=== PATIENT | female | born 1980 | race Caucasian/White ===

== ENCOUNTER 2024-10-29 12:26 | Emergency (ER) | payer MEDICARE, SELFPAY ==
[2024-10-29] VITALS (15 sets, daily range): BP systolic 134–189; BP diastolic 86–145; PULSE 76–108; TEMP 36.3; O2SAT 96–98; BMI 47.4
--- OUTSIDE RECORDS SUMMARY | 2024-10-29 12:34 | XMS_ITS | Clinical Summary ---
[facility] Organization [facility] Address [address] [place] [address] Care Team Providers Care Heating Equipment Repairer Name Role Phone Valerie Hernandez RN Primary Care Provider Unavaila ble Allergies No known active allergies Medications furOSEmide 20 MG TabIndications:Lo ng term (current) use of systemic steroids,Rheumato id arthritis involving multiple sites with positive rheumatoid factor,Dorsalgia, Disorder of bone and cartilage,Bilater al olecranon bursitis,Chronic pain of both shoulders,Tendoni tis of both rotator cuffs,Bilateral biceps tendonitis,Subacr omial bursitis,Rheumato id nodules,Fatigue, unspecified type,Encounter for long-term (current) use of non-steroidal anti-inflammatori es,Long-term current use of high risk medication other than anticoagulant 1 po q AM PRN 30 tablet 11 10/31/19 17 Active folic acid 1 MG TabIndications:An emia, unspecified type,Elevated alkaline phosphatase level,Vitamin D deficiency 4 po q day 120 tablet 11 12/19/19 17 Active pyridoxine ([employer]S VITAMIN B-6) 50 MG TabIndications:Vi tamin B6 deficiency 1 po q day 30 tablet 11 12/20/19 17 Active ciprofloxacin 500 MG Tab tablet 500 mg 2 times daily. 0 12/21/19 18 Active methotrexate 2.5 MG TabIndications:Rh eumatoid arthritis involving multiple sites with positive rheumatoid factor,Bilateral olecranon bursitis,Lumbar degenerative disc disease,Rheumatoi d nodules,manager terminal (current) use of systemic steroids,Encounte r for long-term (current) use of non-steroidal anti-inflammatori es,Long-term current use of high risk medication other than anticoagulant,Rhe umatoid factor positive,Anti-cyc lic citrullinated peptide antibody positive,Hepatiti s A antibody positive,Methotre xate, fdc, current use,Localized edema,Noncomplian ce,Patient non adherence,Vitamin D deficiency,Vitami n B6 deficiency 3 po one day a week 15 tablet 5 12/25/19 18 Active Additional Information Patient not taking.Reported on 03/24/2021 predniSONE 5 MG Tab tabletIndications :Rheumatoid arthritis involving multiple sites with positive rheumatoid factor,Bilateral olecranon bursitis,Lumbar degenerative disc disease,Rheumatoi d nodules,manager terminal (current) use of systemic steroids,Encounte r for long-term (current) use of non-steroidal anti-inflammatori es,Long-term current use of high risk medication other than anticoagulant,Rhe umatoid factor positive,Anti-cyc lic citrullinated peptide antibody positive,Hepatiti s A antibody positive,Methotre xate, fdc, current use,Localized edema,Noncomplian ce,Patient non adherence,Vitamin D deficiency,Vitami n B6 deficiency 4 po q AM for 2 wks then 3 po q AM for 2 wks then 2 po q AM for 2 wks then 1 po q AM thereafter 120 tablet 5 12/25/19 18 Active sulindac 200 MG TabIndications:Rh eumatoid arthritis involving multiple sites with positive rheumatoid factor,Bilateral olecranon bursitis,Lumbar degenerative disc disease,Rheumatoi d nodules,manager terminal (current) use of systemic steroids,Encounte r for long-term (current) use of non-steroidal anti-inflammatori es,Long-term current use of high risk medication other than anticoagulant,Rhe umatoid factor positive,Anti-cyc lic citrullinated peptide antibody positive,Hepatiti s A antibody positive,Methotre xate, fdc, current use,Localized edema,Noncomplian ce,Patient non adherence,Vitamin D deficiency,Vitami n B6 deficiency 1 po bid PRN 60 tablet 11 12/25/19 18 Active Etanercept (ENBREL MINI) 50 MG/ML Solution CartridgeIndicati ons:Rheumatoid arthritis involving multiple sites with positive rheumatoid factor,Bilateral olecranon bursitis,Lumbar degenerative disc disease,Rheumatoi d nodules,manager terminal (current) use of systemic steroids,Encounte r for long-term (current) use of non-steroidal anti-inflammatori es,Long-term current use of high risk medication other than anticoagulant,Rhe umatoid factor positive,Anti-cyc lic citrullinated peptide antibody positive,Hepatiti s A antibody positive,Methotre xate, ferry terminal supervisor, current use,Localized edema,Noncomplian ce,Patient non adherence,Vitamin D deficiency,Vitami n B6 deficiency One shot one day a week 4 Cartridge 11 12/25/19 18 Active Additional Information Patient not taking.Reported on 03/24/2021 potassium chloride 10 MEQ Cap CRIndications:Vit ware D deficiency,Hypoka lemia,Anemia, unspecified type 2 po q day 60 capsule 11 12/25/19 18 Active Cholecalciferol (MAXIMUM D3) 77870 units CapIndications:Vi tamin D deficiency,Hypoka lemia,Anemia, unspecified type 2 po one day a week 10 capsule 11 12/25/19 18 Active Dulaglutide (Trulicity) 1.5 MG/0.5ML Solution Pen-injector injection INJECT 1.5 MG SUBCUTANEOUSLY WEEKLY 11/27/19 21 Active hydroCHLOROthiazi de 12.5 MG tablet 03/21/19 22 Active Levemir FlexTouch 100 UNIT/ML Solution Pen-injector injection 01/25/20 21 Active Insulin Lispro, 1 Unit Dial, 100 UNIT/ML Solution Pen-injector Inject 2-8 Units under the skin Every night. 10/10/19 21 Active sertraline 25 MG tablet 03/21/19 22 Active potassium chloride 20 MEQ Tab CR tablet Take 20 mEq by mouth daily. Active omeprazole [address] capsule Take 1 capsule by mouth 2 times daily. 60 capsule 3 03/24/19 22 Active Active Problems Problem Noted Date Diagnosed Date Gastroesophageal reflux disease 03/24/2021 Overview (03/24/2021): Added automatically from request for surgery [id number] Type 2 diabetes mellitus wit hout complication, with long-term current use of insulin 03/24/2021 Overview (03/24/2021): Added automatically from request for surgery [id number] Hypersomnolence 03/24/2021 Overview (03/24/2021): Added automatically from request for surgery [id number] Noncompliance 12/24/2017 Patient non adherence 12/24/2017 Obesity: body mass index of 50 or higher 018 Effusion of left knee 05/19/2017 Localized edema 05/19/2017 Pain in left knee 05/19/2017 Polyp of sigmoid colon 02/21/2017 Iron deficiency anemia 01/29/2017 Vitamin D deficiency 01/01/2017 Vitamin B6 deficiency 01/01/2017 Hyperglycemia 01/01/2017 Hyponatremia 01/01/2017 Alkaline phosphatase elevation 01/01/2017 Rheumatoid factor positive 01/01/2017 Anti-cyclic citrullinated peptide antibody posit bethany 01/01/2017 ESR raised 01/01/2017 Hepatitis A antibody positive 01/01/2017 Anemia 01/01/2017 Lumbar degenerative disc disease 01/01/2017 Methotrexate, fdc, current use 01/01/2017 Fatigue 10/30/2016 Disorder of bone and cartilage 10/30/2016 manager terminal (current) use of systemic steroids Encounter for long-term (cur rent) use of non-steroidal anti-inflammatories 10/30/2016 Rheumatoid arthritis involvi ng multiple sites with positive rheumatoid factor 10/30/2016 Rheumatoid nodules 10/30/2016 Bilateral olecranon bursitis 10/30/2016 Long-term current use of hig h risk medication other than anticoagulant 10/30/2016 Dorsalgia 10/30/2016 Bilateral shoulder pain 10/30/2016 Tendonitis of both rotator cuffs 10/30/2016 Bilateral biceps tendonitis 10/30/2016 Subacromial bursitis 10/30/2016 Immunizations Immunization Administration Dates Next Due [id number] COVID-19 monovalen t vaccine, mRNA, Pfizer, 0.3 ML 02/18/2021,07/08/2020,06/17/2020 Influenza Vaccine 0.5ml 02/18/2021,01/14/2016 Influenza Vaccine, Quadrivalent MDCK PF 01/30/20 18 Influenza Vaccine, Trivalent 01/17/2015 Influenza, injectable, quadr ivalent, preservative free 02/18/2021 influenza, injectable, quadrivalent 01/10/2017 Family History Medical History Relation Name Comments Diabetes Father Hypertension Father Lung Cancer Father Hypertension Mother Cancer- Other Paternal Grandmother Diabetes Paternal Grandmother Relation Name Status Comments Father Mother Paternal Grandmother Social History Tobacco Use Types Packs/Day Years Used Date Smoking Tobacco: Former Cigarettes Smokeless Tobacco: Never Comments No Sex and Gender Information Value Date Recorded Sex Assigned at Not on file Legal Sex Female 5:52 PM EST Gender Identity Female 09/20/2016 4:08 PM EDT Sexual Orientation Not on file Last Filed Vital Signs Vital Sign Reading Time Taken Comments Blood Pressure 157/111 03/24/2021 8:55 AM EST Pulse 104 03/24/2021 8:55 AM EST Temperature 35.9 C (96.7 F) 03/24/2021 8:55 AM EST Respiratory Rate 18 12/24/2017 10:0 4 AM EDT Oxygen Saturation 96% 03/24/2021 8:55 AM EST Inhaled Oxygen Concentration - - Weight 166.4 kg (366 lb 12.8 oz) 04/08/2021 2:14 PM EST Height 172.7 cm (5' 8 ) 03/24/2021 8:55 AM EST Body Mass Index 55.77 03/24/2021 8:55 AM EST Plan of Treatment Health Maintenance Due Date Last Done Comments TETANUS 1978 HIV SCREENING DISCUSSION 1993 HEP B VACCINE (1 of 3 - 19+ 3-dose series) 1997 PNEUMOCOCCAL VACCINE SERIES (1 of 2 - PCV) 1997 TDAP (ADULT) 1997 CERVICAL CANCER SCREENING DISCUSSION 05/31/1999 LIPID SCREENING 2018 MAMMOGRAM SCREENING DISCUSSION 2018 COLORECTAL CANCER SCREENING DISCUSSION 05/31/2023 COVID-19 VACCINE (2023-2 5 season) 2023 02/18/2021, 07/08/2020, 06/17/2020 INFLUENZA VACCINE (#1) 2024 , 02/18/2021, 01/29/2018, Additional history exists HEPATITIS C VIRUS SCREENING Completed 12/16/2016 POTASSIUM Discontinued 12/24/2017, 12/16/2016 Procedures Procedure Name Priority Date/Time Associated Diagnosis Comments COMPREHENSIVE METABOLIC PANEL Routine 12/24/2017 11:51 AM EDT Rheumatoid arthritis involving multiple sites with positive rheumatoid factor Bilateral olecranon bursitis Lumbar degenerative disc disease Rheumatoid nodules skilled nursing (current) use of systemic steroids Encounter for long-term (current) use of non-steroidal anti-inflammatories Long-term current use of high risk medication other than anticoagulant Rheumatoid factor positive Anti-cyclic citrullinated peptide antibody positive Hepatitis A antibody positive Methotrexate, fdc, current use Localized edema Noncompliance Patient non adherence Vitamin D deficiency Vitamin B6 deficiency HEPATITIS A, B, C Routine 12/16/2016 11: 18 AM EDT skilled nursing (current) use of systemic steroids Rheumatoid arthritis involving multiple sites with positive rheumatoid factor Dorsalgia Disorder of bone and cartilage Bilateral olecranon bursitis Chronic pain of both shoulders Tendonitis of both rotator cuffs Bilateral biceps tendonitis Subacromial bursitis Rheumatoid nodules Fatigue, unspecified type Encounter for long-term (current) use of non-steroidal anti-inflammatories Long-term current use of high risk medication other than anticoagulant from Last 3 Months or Most Recently Relevant to Health Maintenance Results * (ABNORMAL) COMPREHENSIVE METABOLIC PANEL (12/24/2017 11:51 AM EDT) Glucose 121(H) 70 - 100 MG/DL [address] Comment: NORMAL <100 mg/dL PREDIABETES 101-126 mg/dL DIABETES 126 mg/dL or higher BUN 16 7 - 20 MG/DL [address] CREATININE SERUM 0.8 0.52 - 1.04 MG/DL [address] SODIUM 139 136 - 145 MMOL/L [address] Potassium 3.2(L) 3.5 - 5.1 MMOL/L [address] CHLORIDE 107 98 - 107 MMOL/L [address] CALCIUM 9.1 8.4 - 10.2 MG/DL [address] PROTEIN, TOTAL 7.5 6.3 - 8.2 GM/DL [address] Albumin 3.6 3.5 - 5.0 G/dl [address] BILIRUBIN, TOTAL 0.7 0.2 - 1.2 MG/DL [address] AST 16 15 - 41 IU/L [address] ALKALINE PHOSPHATASE 107 38 - 126 IU/L [address] CARBON DIOXIDE (CO2) 23 22 - 30 MMOL/L [address] A/G Ratio 0.9(L) 1.3 - 2.[address] ALT 14 14 - 54 IU/L [address] ESTIMATED GFR, NON AMER >60 ml/min/1. 73sq.m [address] ESTIMATED GFR, >60 ml/min/1. 73sq[address]m [address] GFR COMMENT Average GFR for 30-39 years old = 109. [address] Comment: Chronic Kidney disease, GFR = <60. Kidney failure, GFR = <15. The GFR estimate is not adjusted for extreme body surface area or acute process, nor has it been validated for women or ethnic groups other than and . 12/24/2017 11:5 1 AM EDT 12/24/2017 11:52 AM EDT us Solis Paredes Jr., DO CHEMISTRY ORDERABLES Final Result [address] [place] [address] * (ABNORMAL) HEPATITIS A, B, C (12/16/2016 11:18 AM EDT) Hep A AB (IGG + IGM) Positive(A) Negative [facility] Hep B Surf AG Negative Negative [facility] HEP B CORE AB,TOTAL(IGG+IGM) Negative Negative [facility] Hep B Surf AB Non Reactive [facility] Comment: (NOTE) Non Reactive: Inconsistent with immunity, less than 10 mIU/mL Reactive: Consistent with immunity, greater than 9.9 mIU/mL HEP C AB 0.1 0.0 - 0.9 s/co ratio [facility] Comment: (NOTE) Negative: < 0.8 Indeterminate: 0.8 - 0.9 Positive: > 0.9 The CDC recommends that a positive HCV antibody result be followed up with a HCV Nucleic Acid Amplification test ([id number]). PERFORMED AT [facility] 12/16/2016 11:1 8 AM EDT 12/16/2016 11:20 AM EDT us Solis Paredes Jr., DO IMMUNOLOGY ORDERABLES Final Result [facility] [address] [place] [phone] from Last 3 Months or Most Recently Relevant to Health Maintenance Insurance Medicare A and B Medicaid Care Teams Heating Equipment Repairer Relationship Specialty Start Date End Date Valerie Hernandez, ABRAN PCP - General 02/14/21
--- OUTSIDE RECORDS SUMMARY | 2024-10-29 12:34 | XMS_ITS | Clinical Summary ---
Author Organization [facility] Address [address] [place] [address] Care Team Providers Care Employment Officer Name Role Phone Unavailable Primary Care Provider Unavailabl e Social History Tobacco Use Types Packs/Day Years Used Date Smoking Tobacco: Never Assessed Comments Unknown Sex and Gender Information Value Date Recorded Sex Assigned at Not on file Legal Sex Female 9:50 PM EDT Gender Identity Not on file Sexual Orientation Not on file Last Filed Vital Signs Vital Sign Reading Time Taken Comments Blood Pressure 134/83 02/17/2019 12:00 PM EST Pulse - - Temperature - - Respiratory Rate - - Oxygen Saturation - - Inhaled Oxygen Concentration - - Weight 167 kg (369 lb) 04/03/2019 12:00 PM EST Height 172.7 cm (5' 8 ) 04/03/2019 12:00 PM EST Body Mass Index 56.11 04/03/2019 12:00 PM EST Plan of Treatment Not on file Insurance MEDICARE
--- OUTSIDE RECORDS SUMMARY | 2024-10-29 12:34 | XMS_ITS | Clinical Summary ---
Author Organization [employer] Address [facility] [id number] [address] [place] [address] Care Team Providers Care Sample Cutter Name Role Phone Tamela Potter Catrachita MARKS-FISH HOUSEKEEPER Primary Care Provider + Allergies No known active allergies Medications furosemide (LASIX) 20 mg tablet Take 20 mg by mouth daily. Active predniSONE (DELTASONE) 10 mg tablet Take 10 mg by mouth daily. 1 Active pravastatin (PRAVACHOL) 20 mg tablet Take 20 mg by mouth daily. 1 Active sertraline (ZOLOFT) 25 mg tablet Take 25 mg by mouth daily. 1 Active SITagliptin (JANUVIA) 50 mg tablet Take 50 mg by mouth daily. 0 Active potassium chloride (KLOR-CON SPRINKLE) 10 MEQ CR capsule Take 1 capsule by mouth daily. 1 Active omeprazole (PriLOSEC OTC) 20 mg EC tablet Take 20 mg by mouth daily. Active losartan (COZAAR) 100 mg tablet Take 100 mg by mouth daily. 1 Active insulin NPH isoph U-100 human (HumuLIN N KWIKPEN) 100 unit/mL (3 mL) insulin pen Inject 15 Units under the skin daily. 15 mL 12 1 Active insulin lispro (HumaLOG) 100 unit/mL insulin pen Inject 2-10 Units under the skin 3 (three) times a day with meals. 15 mL 12 1 Active insulin lispro (HumaLOG) 100 unit/mL insulin pen Inject 2-8 Units under the skin nightly. 15 mL 12 1 Active TRULICITY 1.5 mg/0.5 mL pen injector INJECT 1.5 MG SUBCUTANEOUSLY WEEKLY 1 Active ferrous sulfate 325 (65 FE) mg tablet Take 1 tablet by mouth 2 (two) times a day. 1 Active cholecalcifero l, vitamin D3, 2,000 units capsule Take by mouth daily. 1 Active sulindac (CLINORIL) 150 mg tablet 1 Active Active Problems Problem Noted Date Diagnosed Date BMI 50.0-59.9, adult 11/05/2020 Necrotizing fasciitis 09/30/2020 Polyp of sigmoid colon 02/21/2017 Iron deficiency anemia 01/29/2017 Immunizations Immunization Administration Dates Next Due Influenza, Im Trivalent Preservative 01/17/2015 Influenza, Injectable, Mdck, Preservative Free, Quad 01/29/2018 Influenza, Injectable, Quadrivalent 01/10/2017 Influenza, Unspecified 01/14/2016 Tdap 11/06/2017 Family History Medical History Relation Name Comments Colon cancer Father Diabetes Father Hypertension Father Hypothyroidism Father Lung cancer Father Hypertension Mother Rheum arthritis Mother Relation Name Status Comments Father Mother Social History Tobacco Use Types Packs/Day Years Used Date Smoking Tobacco: Former Cigarettes 0.5 6 2 - 2016 Smokeless Tobacco: Never Alcohol Use Standard Drinks/Week Comments Yes 6 (1 standard drink = 0.6 oz pur e alcohol) Childcare Answer Date Recorded Childcare Unknown 08/29/2018 Employment Answer Date Recorded Employment Unknown 08/29/2018 Purpose - Life Answer Date Recorded Purpose and direction in life Unknown Comments No Sex and Gender Information Value Date Recorded Sex Assigned at Not on file Legal Sex Female 8:19 AM EST Gender Identity Not on file Sexual Orientation Not on file Last Filed Vital Signs Vital Sign Reading Time Taken Comments Blood Pressure 165/93 01/24/2021 2:01 PM EST Pulse 80 01/24/2021 2:01 PM EST Temperature 36.7 C (98 F) 10/09/2020 12:20 PM EDT Respiratory Rate 18 10/09/2020 12:20 PM EDT Oxygen Saturation 94% 10/09/2020 12:20 PM EDT Inhaled Oxygen Concentration - - Weight 153.8 kg (339 lb) 01/24/2021 2:01 PM EST Height 170.2 cm (5' 7 ) 01/24/2021 2:01 PM EST Body Mass Index 53.09 01/24/2021 2:01 PM EST Plan of Treatment Health Maintenance Due Date Last Done Comments Depression Screening 1990 Tobacco Screening 1990 Adult BMI Screening 1996 Pap Smear 05/31/1999 COVID-19 Vaccine (3 - 2023-2 5 season) 2023 07/08/2020, 06/17/2020 Influenza Vaccine 11/17/2024 01/29/2018, , 01/14/2016, Additional history exists DTaP,Tdap and Td Vaccines (2 - Td or Tdap) 11/07/2027 11/06/2017 Goals Goal Patient Goal Type Associated Problems Recent Progress Patient-Stated? Author home with [facility] General Yes Sari Soriano, RN Note: And family support Medical Devices Not on file Insurance MEDICARE MEDICAID [place] Advance Directives * Full Code (Latest Code Status on File) Date Activated Date Inactivated Comments 09/30/2020 4:44 PM 10/09/2020 4:35 PM Care Teams Sample Cutter Relationship Specialty Start Date End Date Tamela Potter APRN-FISH HOUSEKEEPER [address] [place], [place] [phone] PCP - General Family Medicine 09/30/20
--- OUTSIDE RECORDS SUMMARY | 2024-10-29 12:34 | XMS_ITS | Encounter Summary ---
Author Organization [employer] Address [facility] [id number] [address] [facility] [place] [address] Care Team Providers Care Dermatologist Name Role Phone Tamela Potter KENDRICK-[employer] LAYER Primary Care Provider + Encounter Details Date Type Department Care Team (Late st Contact Info) Description 10/13/2020 Telephone [facility] [address] [place] [phone] Diana Holder CMA Social History Tobacco Use Types Packs/Day Years Used Date Smoking Tobacco: Former Cigarettes 0.5 6 2 011 2016 Smokeless Tobacco: Never Alcohol Use Standard [...] on file Sexual Orientation Not on file COVID-19 Exposure Response Date Recorded In the last month, have you been in contact with someone who was confirmed or suspected to have Coronavirus / COVID-19? No / Unsure 09/30/2020 6:18 PM EDT documented as of this encounter Plan of Treatment Not on file documented as of this encounter Goals Goal Patient Goal Type Associated Problems Recent Progress Patient-Stated? Author home with [facility] General Yes Sari Soriano, RN Note: And family support documented as of this encounter Visit Diagnoses Diagnosis Necrotizing fasciitis ([facility])- Primary Necrotizing fasciitis documented in this encounter Care Teams Dermatologist Relationship Specialty Start Date End Date Tamela Potter APRN-HARDWOOD FLOOR LAYER [address] [place] [id number] PCP - General Family Medicine 09/30/20 documented as of this encounter
--- OUTSIDE RECORDS SUMMARY | 2024-10-29 12:34 | XMS_ITS | Clinical Summary ---
Author Organization [facility] Address [address] [place] [address] Care Team Providers Care Communication Equipment Mechanic Name Role Phone Unavailable Primary Care Provider Unavailabl e Social History Tobacco Use Types Packs/Day Years Used Date Smoking Tobacco: Never Assessed [place] Safety & Environment Answer Date Rec orded Fear of Current or Ex-Partner Not on file Emotionally Abused Not on file 05/10/2023 Physically Abused Not on file 05/10/2023 Sexually Abused Not on file 05/10/2023 Physically or Sexually Abused Not on file Comments Unknown Sex and Gender Information Value Date Recorded Sex Assigned at Not on file Legal Sex Female 12:38 AM EDT Gender Identity Not on file Sexual Orientation Not on file Plan of Treatment Not on file
--- OUTSIDE RECORDS SUMMARY | 2024-10-29 12:34 | XMS_ITS | Encounter Summary ---
Author Organization [employer] Address [facility] [id number] [address] [place] [address] Care Team Providers Care License Examiner Name Role Phone Tamela Potter Catrachita BERGER Primary Care Provider + Encounter Details Date Type Department Care Team (Late st Contact Info) Description 09/30/2020 Orders Only [facility] [place] [address] Transcribe, Orders Support User Pain (Primary Dx) Social History Tobacco Use Types Packs/Day Years Used Date Smoking Tobacco: Former Cigarettes 0.5 6 2 2016 Smokeless Tobacco: Never Alcohol Use Standard [...] PM EDT documented as of this encounter Functional Status documented as of this encounter Plan of Treatment Not on file documented as of this encounter Results * CT abdomen and pelvis with contrast (09/30/2020 11:35 AM EDT) us Scanning Provider External IMG CT ORDERABLES Fin al Result * X-ray chest 1 view (09/30/2020 10:30 AM EDT) us Scanning Provider External IMG DIAGNOSTIC IMAGIN G ORDERABLES Final Result documented in this encounter Visit Diagnoses Diagnosis Pain- Primary Generalized pain documented in this encounter Care Teams License Examiner Relationship Specialty Start Date End Date Tamela Potter APRN-TIPPLE WORKER [address] [place] [id number] PCP - General Family Medicine 09/30/20 documented as of this encounter
--- NOTE | 2024-10-29 12:42 | ECG_ITS ---
[facility] Test Date: 2024-10-29 Pat Name: MALINI MONTANA Department: Room: - Gender: Female Tele Marketing Executive: : 1980 Requested By: [id number] Order Number: [id number] Reading MD: RUPAL ROSADO M.D. Measurements Intervals [place] Rate: 93 P: 60 IN: 200 QRS: 26 QRSD: 84 T: 49 QT: 348 QTc: 399 Interpretive Statements 1100 Sinus rhythm 1570 with occasional ventricular premature complexes 2420 RSR (QR) in lead V1/V2, consistent with right ventricular conduction delay ANTEROSEPTAL INFARCT, ACUTE [address] depression 8102 Low QRS voltage in chest leads STEMI 9150 abnormal ECG No previous ECG available for comparison Electronically Signed On 10-30-2024 19:25:04 EDT by RUPAL ROSADO M.D.
--- NOTE | 2024-10-29 12:44 | ED_ITS ---
HPI HPI - General Adult General Chief complaint: Chest Pain Stated complaint: CHEST PAINS WEAKNESS L SHOULDER Time Seen by Provider: 10/29/24 12:36 Source: patient Mode of arrival: walk-in Limitations: no limitations History of Present Illness HPI narrative: 44-year-old female presents for chest pain. It is sharp and in the middle part of her chest and it started about 730 this morning, about 5 hours ago. No trauma or unusual activity and it does not seem to radiate but her left shoulder feels tired. No shortness of breath or fever or cough or back pain. She has no personal history of CAD. Related Data Allergies Allergy/AdvReac Type Severity Reaction Status Date / Time No Known Drug Allergies Allergy Verified 10/29/24 12:32 Review of Systems ROS Narrative A ten point review of systems is negative except as noted above. PFSH PFSH Social History Little interest or pleasure in doing things: not at all Feeling down, depressed, or hopeless: not at all Exam Narrative Exam Narrative: Nurses note and vital signs reviewed and patient is not hypoxic. General: The patient appears well and in no apparent distress. Patient is resting comfortably on cart. Skin: Warm, dry, no pallor noted. There is no rash noted. Head: Normocephalic, atraumatic Eye: Normal conjunctiva, no drainage Ears, Nose, Mouth, and Throat: oral mucosa is moist. Nares patent. Cardiovascular: Regular Rate and Rhythm Respiratory: Patient is in no distress, no accessory muscle use, lungs are clear to auscultation, no wheezing, rales or rhonchi Back: non-tender GI: Soft and nontender Musculoskeletal: The patient has no evidence of calf tenderness, no pitting edema, symmetrical pulses noted bilaterally Neurological: A&O, normal speech Psychiatric: Cooperative Constitutional Vital Signs, click to edit/add: Last Vital Signs Temp 97.4 F L 10/29/24 12:32 Pulse 100 H 10/29/24 13:09 Resp 18 10/29/24 13:09 BP 160/110 H 10/29/24 13:09 Pulse Ox 96 10/29/24 13:09 O2 Del Method Room Air 10/29/24 13:09 Course Vital Signs Vital signs: Vital Signs Temperature 97.4 F L 10/29/24 12:32 Pulse Rate 96 H 10/29/24 12:32 Respiratory Rate 20 10/29/24 12:32 Blood Pressure 165/110 H 10/29/24 12:32 Pulse Oximetry 97 10/29/24 12:32 Oxygen Delivery Method Room Air 10/29/24 12:32 Temperature 97.4 F L 10/29/24 12:32 Pulse Rate 100 H 10/29/24 13:09 Respiratory Rate 18 10/29/24 13:09 Blood Pressure 160/110 H 10/29/24 13:09 Pulse Oximetry 96 10/29/24 13:09 Oxygen Delivery Method Room Air 10/29/24 13:09 Medical Decision Making MDM Narrative Medical decision making narrative: STEMI is identified on her EKG. Troponin is elevated at 550. Case discussed with Dr. Sparks at [facility] and he has reviewed the EKG and we have agreed the patient will be transported there expeditiously for emergent heart catheterization. The patient was given IV heparin and oral Brilinta as well as aspirin and nitroglycerin. She is hemodynamically stable and agreeable for transfer. She was given IV metoprolol for elevated blood pressure. Transport will be by helicopter to transfer her there in the most expedient fashion. Differential Diagnosis Differential Diagnosis: STEMI, NSTEMI, nonspecific chest pain, anxiety, GERD Lab Data Lab results reviewed: Yes I reviewed the patient's lab results Labs: Lab Results 10/29/24 Range/Units 12:45 WBC 9.9 (4.0-11.0) 10^3/uL RBC 4.79 (4.20-5.40) 10^6/uL Hgb 11.4 L (12.0-16.0) g/dL Hct 36.7 (36.0-48.0) % MCV 76.6 L (81.0-99.0) fL MCH 23.8 L (26.7-34.0) pg MCHC 31.1 (29.9-35.2) g/dL RDW 15.1 H (11.0-15.0) % Plt Count 333 (150-450) 10^3/uL MPV 9.7 (9.5-13.5) fL Neut % (Auto) 69.9 (43.0-75.0) % Lymph % (Auto) 21.0 (20.5-60.0) % [place] % (Auto) 4.9 (1.7-12.0) % Eos % (Auto) 3.1 (0.9-7.0) % Baso % (Auto) 0.9 (0.2-2.0) % Neut # (Auto) 6.9 H (1.4-6.5) 10^3/uL Lymph # (Auto) 2.1 (1.2-3.8) 10^3/uL [place] # (Auto) 0.5 (0.3-0.8) 10^3/uL Eos # (Auto) 0.3 (0.0-0.7) 10^3/uL Baso # (Auto) 0.1 (0.0-0.1) 10^3/uL Abs Immat Gran (auto) 0.02 (0.00-0.03) 10^3/uL Imm/Tot Granulo (auto) 0.2 (0.0-0.5) % Sodium 134 L (136-145) mmol/L Potassium 3.7 (3.5-5.1) mmol/L Chloride 101 (98-107) mmol/L Carbon Dioxide 22.0 (21.0-32.0) mmol/L Anion Gap 14.7 BUN 14.0 (7.0-18.0) mg/dL Creatinine 0.95 (0.55-1.02) mg/dL Est GFR ( Amer) >60 (>=60 mL/min/1.73m^2) Est GFR (Non-Af Amer) >60 (>=60 mL/min/1.73m^2) BUN/Creatinine Ratio 14.7 Glucose 246 H (74-106) mg/dL Calcium 9.6 (8.5-10.1) mg/dL Troponin I High Sens 550.9 H* (4.0-51.3) pg/mL Imaging Data Chest x-ray: My impression: Chest x-ray my interpretation shows no acute findings ECG Data Attestation: I personally reviewed and interpreted this ECG as follows: (EKG on my interpretation shows sinus rhythm with rate of 93 and a PVC. There is ST depression in lead aVF as well as ST elevation in V1 and V2.) Critical Care Time Critical Care Time Critical Care Time: Yes Total Critical Care Time: 45 Attestation: Due to the high probability of sudden and clinically significant deterioration in the patient's condition he/she required the highest level of my preparedness to intervene urgently I provided critical care time including documentation time, medication orders and management, reevaluation, vital sign assessment, ordering and reviewing of lab tests, ordering and reviewing of x-ray studies, and admission orders. Aggregate critical care time is 45 minutes including only time during which I was engaged in work directly related to his/her care and did not include time spent treating other patients simultaneously. Discharge Plan Discharge Chief Complaint: Chest Pain Clinical Impression: ST elevation (STEMI) myocardial infarction Patient Disposition: [facility] Time of Disposition Decision: 13:08 Discharge Location: [facility] Condition: Fair Mode of Transportation: [employer]
[2024-10-29 12:55] LABS: Hematocrit 36.7 % (36.0-48.0); Hemoglobin 11.4 g/dL (12.0-16.0); Immature Granulocytes Abs Auto 0.02 10^3/uL (0.00-0.03); Immature Granulocytes Pct Auto 0.2 % (0.0-0.5); Lymphocytes Absolute Auto 2.1 10^3/uL (1.2-3.8); Mean Corpuscular HGB Conc 31.1 g/dL (29.9-35.2); Mean Corpuscular Hemoglobin 23.8 pg (26.7-34.0); Mean Corpuscular Volume 76.6 fL (81.0-99.0); Platelet Count 333 10^3/uL (150-450); Red Blood Count 4.79 10^6/uL (4.20-5.40); White Blood Count 9.9 10^3/uL (4.0-11.0)
--- NOTE | 2024-10-29 12:55 | XR_ITS ---
[facility] [place] [id number] Patient Name: MALINI MONTANA MRN: [id number] date: 1980 Sex: F Assigned Patient Location: ER Current Patient Location: ED.MAIN Accession/Order Number: [id number] Exam Date: 10/29/2024 13:30 Report Date: 10/29/2024 13:31 At the request of: SIMRAN VILLEGAS MD Procedure: XR chest 1V Single view chest: CLINICAL HISTORY: CP COMPARISON: Chest 09/30/2020 FINDINGS: The heart is normal in size. The lungs are clear. The pulmonary vasculature is normal. Mediastinum and hilar regions are unremarkable. No pleural effusions are seen. Visualized bones are intact. XR/XR chest 1V IMPRESSION: NEGATIVE CHEST. Impression dictated by: Anish Clancy Jr., D.O. 10/29/2024 1:31 PM Dictation Location: [place] [address] Electronically authenticated by: [id number] Y Date: 10/29/2024 13:31
[2024-10-29] MEDS: ASPIRIN 81 MG TAB.CHEW 324 MG PO (13:01)
[2024-10-29] MEDS: NITROGLYCERIN 0.4 MG BOTTLE SL ×2 (13:03→13:08)
[2024-10-29 13:11] LABS: Anion Gap 14.7; Blood Urea Nitrogen 14.0 mg/dL (7.0-18.0); Calcium 9.6 mg/dL (8.5-10.1); Carbon Dioxide 22.0 mmol/L (21.0-32.0); Chloride 101 mmol/L (98-107); Estimated GFR (African America >60 (>=60 mL/min/1.73m^2); Estimated GFR (Non-African Ame >60 (>=60 mL/min/1.73m^2); Glucose 246 mg/dL (74-106); Potassium 3.7 mmol/L (3.5-5.1); Sodium 134 mmol/L (136-145)
[2024-10-29] MEDS: METOPROLOL TARTRATE 5 MG/5 ML VIAL IVP (13:13)
[2024-10-29] MEDS: TICAGRELOR 90 MG TABLET 180 MG PO (13:22)
[2024-10-29] MEDS: HEPARIN SODIUM (PORCINE) 5,000 UNIT/ML VIAL 4000 UNIT IV (13:31)
[2024-10-29] MEDS: HEPARIN SODIUM,PORCINE/D5W 25,000 UNIT/500 ML IV.SOLN 20 UNIT IV (13:33)
== END 2024-10-29 14:02 | disposition short-term general hospital (02) ==
PROVIDERS: Emergency Provider Emergency Medicine
DX: I21.3 ST elevation (STEMI) myocardial infarction of unspecified site (principal); R94.31 Abnormal electrocardiogram [ECG] [EKG]; R07.89 Other chest pain; I24.9 Acute ischemic heart disease, unspecified
CPT/HCPCS: 36415; 71045; 80048; 84484; 85025; 93005; 96365; 96375; 96376; 99285; J1644